=== PATIENT | female | born 1970 | race Caucasian/White ===

== ENCOUNTER 2021-11-06 16:56 | Emergency (ER) | payer MEDICARE ==
[2021-11-06] VITALS (14 sets, daily range): BP systolic 83–105; BP diastolic 51–71
[~2021-11-06] VITALS: Ht 165.1 cm; Wt 94.5 kg
[2021-11-06] MEDS ORDERED: LEVOTHYROXIN150 MCG PO (17:44)
[2021-11-06] MEDS ORDERED: CITALOPRAM40 M1 (17:44)
[2021-11-06] MEDS ORDERED: CADUET5 MG/20 MG PO (17:44)
[2021-11-06] MEDS ORDERED: AMITRIPTYLINE H10 MG PO (17:45)
[2021-11-06] MEDS ORDERED: FLONASE AL50 MCG/ACT NAB (17:45)
[2021-11-06] MEDS ORDERED: CLARITIN-D1 TA2 PO (17:46)
[2021-11-06] MEDS ORDERED: HYDROCO/APAP1 TA9 PO (17:46)
[2021-11-06] MEDS ORDERED: GABAPENTIN600 MG PO (17:47)
[2021-11-06 17:50] LABS: HEMATOCRIT 33.4 % (37.0-47.0); HEMOGLOBIN 10.2 g/dl (12.0-16.0); IMMATURE GRANULOCYTES 0.1 % (0.0-5.0); MEAN CELL VOLUME 103.7 fL CALC (80.0-100.0); MEAN CORPUSCULAR HGB 31.7 pG CALC (26.0-32.0); MEAN CORPUSCULAR HGB CONC 30.5 g/dL CAL (32.0-36.0); NEUT# 3.55 thou/uL (2.00-7.15); RED BLOOD COUNT 3.22 mill/uL (4.20-5.60); RED CELL DISTRI WIDTH 14.4 % (11.5-15.5)
[2021-11-06 18:07] LABS: ALBUMIN 3.5 g/dL (3.2-5.0); ALKALINE PHOSPHATASE 92 u/l (38-126); ANION GAP 10 (6-22 (CALC)); BILIRUBIN, TOTAL 0.2 mg/dL (0.0-1.4); BUN 27 mg/dL (7-17); BUN/CREATININE RATIO 19 (12-20 (CALC)); CARBON DIOXIDE 26 mmol/l (22-30); CHLORIDE 107 mmol/l (95-108); CREATININE 1.4 mg/dL (0.5-1.0); GFR 40 ML/MIN (>=60 (CALC)); GFR FOR AFR.AMER. 48 ML/MIN (>=60 (CALC)); POTASSIUM 4.3 mmol/l (3.5-5.1); SGOT/AST 30 u/l (14-36); SODIUM 139 mmol/l (137-146); TOTAL PROTEIN 6.4 g/dL (6.3-8.2)
[2021-11-06 18:20] LABS: MYOGLOBIN 74 ng/mL (0 - 62)
[2021-11-06 18:26] LABS: URINE BILIRUBIN - DIPSTICK NEGATIVE (NEGATIVE); URINE BLOOD DIPSTICK NEGATIVE (NEGATIVE); URINE COLOR YELLOW; URINE GLUCOSE - DIPSTICK NEGATIVE (NEGATIVE); URINE KETONE NEGATIVE (NEGATIVE); URINE LEUK ESTERASE TRACE (NEGATIVE); URINE PH 6.5 (4.5-8.0); URINE PROTEIN - DIPSTICK NEGATIVE (NEG-TRACE); URINE SPECIFIC GRAVITY 1.015; URINE UROBILINOGEN - DIPSTICK 0.2 E.U./dL (0.2)
[2021-11-06 18:27] LABS: URINE NITRITE - DIPSTICK NEGATIVE (Negative)
[2021-11-06] MEDS ORDERED: SYNTHROID200 MCG PO (21:05)
== END 2021-11-06 22:20 | disposition home or self-care (01) ==
LOC: ED 16:56
PROVIDERS: Emergency Medicine
DX: R41.82 Altered mental status, unspecified (principal); M79.89 Other specified soft tissue disorders; E03.9 Hypothyroidism, unspecified; I10 Essential (primary) hypertension; F32.A Depression, unspecified; Z20.822 Contact with and (suspected) exposure to COVID-19